=== PATIENT | female | born 1995 | race Caucasian/White ===

== ENCOUNTER → 2017-08-29 | Outpatient (CLI) | payer BC ==
--- NOTE | 2017-08-29 11:48 | RAD ---
3 views left tibia and fibula 08/29/2017 10:54 AM Indication: Severe lower leg pain Comparison: None Findings: There is no fracture or dislocation identified. Articular surfaces are uninterrupted. Soft tissues are unremarkable. Impression: No evidence of acute osseous abnormality
--- NOTE | 2017-08-29 13:05 | RAD ---
Left lower extremity venous duplex ultrasound. 08/29/2017 1:03 PM Indication: LT leg pain lower leg calf and ankle x's2 days Comparison study: None Discussion: Sonographic evaluation of the deep veins of the left lower extremity was performed. This includes grayscale imaging and color duplex imaging with spectral analysis. No evidence of deep venous thrombosis is seen. Interrogated veins are compressible and demonstrate augmentable blood flow and color Doppler imaging. Impression: No evidence of deep venous thrombosis involving the left lower extremity
== END | disposition home or self-care (01) ==
LOC: PMG 08:33
PROVIDERS: ATTEND Physician Assistant
DX: M79.605 Pain in left leg (principal)
CPT/HCPCS: 73590; 93971

== ENCOUNTER → 2019-02-03 | Outpatient (CLI) | payer BC ==
--- NOTE | 2019-02-03 11:35 | RAD ---
EXAM: Pelvic sonogram. HISTORY: Menorrhagia. TECHNIQUE: Transabdominal and transvaginal sonographic imaging of the pelvis was performed. COMPARISON: None. FINDINGS: The uterus measures 7.8 x 4.9 x 4.2 cm. The endometrial stripe measures 10 mm in thickness. There is a nabothian cyst within the cervix. The right ovary is enlarged, measuring 4.6 x 2.8 x 3.4 cm. There are multiple right ovarian follicles and a suspected complicated cyst with internal debris and irregular margins measuring 2.0 cm. The left ovary is normal in size and contains multiple small follicles. There is normal blood flow within both ovaries. There is a small amount of simple free fluid within the pelvis. IMPRESSION: 1. Enlarged right ovary containing multiple prominent follicles in a suspected complicated cyst with debris and irregular margins measuring 2.0 cm, possibly an involuting cyst. 2. Endometrial thickness of 10 mm, within normal limits for a premenopausal female. 3. Small amount of nonspecific pelvic free fluid. Electronically signed by: Mariela Eldridge MD (02/03/2019 11:32 AM) [id number]
== END | disposition home or self-care (01) ==
LOC: US 10:00
PROVIDERS: ATTEND Registered Nurse
DX: N88.8 Other specified noninflammatory disorders of cervix uteri (principal)
CPT/HCPCS: 76830; 76856